=== PATIENT | male | born 1950 | race Caucasian/White ===

== ENCOUNTER 2020-08-07 12:19 | Emergency (ER) | payer MEDICARE, MEDICAID ==
[~2020-08-07] VITALS: Ht 177.8 cm; Wt 49.8 kg
[2020-08-07 12:23] VITALS: BP 120/12
--- NOTE | 2020-08-07 12:36 | NUR ---
Provider RAE Reyna is with the patient at this time.
[2020-08-07] MEDS ORDERED: ipratropium/albuterol 3ml nebule NEB ONE (12:40)
[2020-08-07] MEDS ORDERED: predniSONE 20 mg tablet PO ONE (12:40)
[2020-08-07 13:15] LABS: BASOPHILS # (AUTO) 0.1 X10'3 (0-0.2); BASOPHILS % (AUTO) 0.8 % (0-1); EOSINOPHILS # (AUTO) 0.5 X10'3 (0-0.9); EOSINOPHILS % (AUTO) 4.2 % (0-6); HEMATOCRIT 44.3 % (42.0-52.0); HEMOGLOBIN 14.7 g/dl (14.0-17.9); LYMPHOCYTES # (AUTO) 1.1 X10'3 (1.1-4.8); LYMPHOCYTES % (AUTO) 10.4 % (21-51); MEAN CORPUSCULAR HGB CONC 33.1 g/dL (33.0-36.5); MEAN CORPUSCULAR VOLUME 96.7 FL (78-98); MONOCYTES # (AUTO) 1.6 X10'3 (0-0.9); MONOCYTES % (AUTO) 14.5 % (2-12); NEUTROPHILS # (AUTO) 7.6 X10'3 (1.8-7.7); NEUTROPHILS % (AUTO) 70.1 % (42-75); PLATELET COUNT 314 X10'3 (140-440); RED BLOOD COUNT 4.58 X10'6 (4.70-6.10); RED CELL DISTRIBUTION WIDTH 14.8 % (11.5-14.5); WHITE BLOOD COUNT 10.9 X10'3 (4.5-11.0)
[2020-08-07 13:30] LABS: ALANINE AMINOTRANSFERASE 18 U/L (12-78); ALBUMIN 3.8 G/DL (3.4-5.0); ALKALINE PHOSPHATASE 130 IU/L (46-116); ANION GAP 9 (8-16); ASPARTATE AMINO TRANSFERASE 14 U/L (10-37); BILIRUBIN,TOTAL 0.5 MG/DL (0.1-1.0); BLOOD UREA NITROGEN 9 MG/DL (7-18); BUN/CREATININE RATIO 11.3 (5.4-32.0); CALCIUM 9.8 MG/DL (8.5-10.1); CHLORIDE 103 MMOL/L (99-107); GLUCOSE 105 MG/DL (70-104); POTASSIUM 4.2 MMOL/L (3.5-5.1); SODIUM 140 MMOL/L (135-145); TOTAL CARBON DIOXIDE 28.2 MMOL/L (24-32); TOTAL PROTEIN 7.7 G/DL (6.4-8.2); eGFR > 90 ML/MIN
[2020-08-07] MEDS ORDERED: PRED20TA PO (13:38)
[2020-08-07] MEDS ORDERED: ALBU8HFA PO (13:38)
[2020-08-07] MEDS ORDERED: AZIT-72 PO (13:38)
== END 2020-08-07 14:10 | disposition home or self-care (01) ==
LOC: ER 12:20
DX: J44.1 Chronic obstructive pulmonary disease with (acute) exacerbation (principal); F17.200 Nicotine dependence, unspecified, uncomplicated; Z88.8 Allergy status to other drugs, medicaments and biological substances; Z79.899 Other long term (current) drug therapy
CPT/HCPCS: 36415; 71045; 80053; 83880; 84484; 85025; 93005; 94640; 99285; J7512; 94760

== ENCOUNTER 2021-07-14 19:50 | Emergency (ER) | payer MEDICARE, MEDICAID ==
[~2021-07-14] VITALS: Ht 180.3 cm; Wt 68.2 kg
--- NOTE | 2021-07-15 01:27 | NUR ---
pt placed in room. assumed care of pt
[2021-07-15] MEDS ORDERED: PRED20TA PO (02:15)
[2021-07-15] MEDS ORDERED: DOXY100C43 PO (02:15)
[2021-07-15] MEDS ORDERED: ALBU8HFA PO (02:15)
[2021-07-15 02:34] VITALS: BP 155/88
== END 2021-07-15 02:36 | disposition home or self-care (01) ==
LOC: ER 19:50
DX: J44.1 Chronic obstructive pulmonary disease with (acute) exacerbation (principal); F17.200 Nicotine dependence, unspecified, uncomplicated; Z56.0 Unemployment, unspecified; Z79.2 Long term (current) use of antibiotics; Z79.899 Other long term (current) drug therapy; Z72.89 Other problems related to lifestyle
CPT/HCPCS: 99284

== ENCOUNTER 2022-10-02 11:50 | Emergency (ER) | payer MEDICARE, MEDICAID ==
[~2022-10-02] VITALS: Ht 177.8 cm; Wt 70.0 kg
[2022-10-02 12:20] LABS: EOSINOPHILS # (AUTO) 0.2 X10'3 (0-0.9); HEMOGLOBIN 15.3 g/dl (14.0-17.9); MEAN CORPUSCULAR HGB CONC 33.5 g/dL (33.0-36.5); NEUTROPHILS # (AUTO) 5.3 X10'3 (1.8-7.7); RED BLOOD COUNT 4.79 X10'6 (4.70-6.10); WHITE BLOOD COUNT 7.4 X10'3 (4.5-11.0)
[2022-10-02 12:21] LABS: BASOPHILS % (AUTO) 0.1 % (0-1); EOSINOPHILS % (AUTO) 2.6 % (0-6); HEMATOCRIT 45.8 % (42.0-52.0); LYMPHOCYTES # (AUTO) 0.9 X10'3 (1.1-4.8); LYMPHOCYTES % (AUTO) 11.9 % (21-51); MEAN CORPUSCULAR VOLUME 95.6 FL (78-98); MEAN PLATELET VOLUME 8.8 FL (7.4-10.4); MONOCYTES % (AUTO) 13.9 % (2-12); NEUTROPHILS % (AUTO) 71.5 % (42-75); PLATELET COUNT 374 X10'3 (140-440); RED CELL DISTRIBUTION WIDTH 13.8 % (11.5-14.5)
[2022-10-02 12:35] LABS: ANION GAP 10 (8-16); BLOOD UREA NITROGEN 11 MG/DL (7-18); BUN/CREATININE RATIO 9.4 (5.4-32.0); CALCIUM 9.1 MG/DL (8.5-10.1); CHLORIDE 100 MMOL/L (99-107); CREATININE 1.17 MG/DL (0.60-1.10); GLUCOSE 125 MG/DL (70-104); POTASSIUM 3.6 MMOL/L (3.5-5.1); SODIUM 137 MMOL/L (135-145); TOTAL CARBON DIOXIDE 27.4 MMOL/L (24-32); eGFR 62 ML/MIN
[2022-10-02 12:36] LABS: ALANINE AMINOTRANSFERASE 42 U/L (12-78); ALBUMIN 3.4 G/DL (3.4-5.0); ALBUMIN/GLOBULIN RATIO 0.9 (1.1-1.5); ALKALINE PHOSPHATASE 119 IU/L (46-116); ASPARTATE AMINO TRANSFERASE 25 U/L (10-37); BILIRUBIN,TOTAL 0.9 MG/DL (0.1-1.0)
[2022-10-02 12:44] LABS: MAGNESIUM 2.3 MG/DL (1.5-2.4)
[2022-10-02] MEDS ORDERED: iohexol 350MG/ML 100ml bottle IV ONE (14:31)
[2022-10-02] MEDS ORDERED: carvedilol 6.25mg tablet PO STA (16:18)
[2022-10-02] MEDS ORDERED: aspirin 81mg, enteric-coated 1 TAB TABLET.DR PO ONE (16:20)
[2022-10-02] MEDS ORDERED: CARV-49 PO (16:42)
[2022-10-02] MEDS ORDERED: DOXY100C43 PO (16:43)
[2022-10-02 17:33] VITALS: BP 121/97
[2022-10-02] MEDS ORDERED: ASPI81TA52 PO (17:33)
== END 2022-10-02 17:42 | disposition home or self-care (01) ==
LOC: ER 11:50
DX: I48.91 Unspecified atrial fibrillation (principal); J44.9 Chronic obstructive pulmonary disease, unspecified; J18.9 Pneumonia, unspecified organism; Z56.0 Unemployment, unspecified
CPT/HCPCS: 36415; 71045; 71275; 80053; 83735; 83880; 84484; 85025; 93005; 99285; J3490; Q9967

== ENCOUNTER 2024-06-17 22:46 | Inpatient (IN) | payer MEDICARE, MEDICAID ==
[~2024-06-17] VITALS: Ht 180.3 cm; Wt 73.0 kg
[~2024-06-17 22:46] MED LIST: CARV-49 PO
[2024-06-17] MEDS: normal saline 1000ml 1,000 ML IV ONE (23:22)
[2024-06-17] MEDS: CefTRIAXone/D5W-Rocephin 1gm 50 ML IV ONE (23:23)
[2024-06-17 23:30] LABS: BASOPHILS # (AUTO) 0.1 X10'3 (0-0.2); BASOPHILS % (AUTO) 1.1 % (0-1); EOSINOPHILS # (AUTO) 0.3 X10'3 (0-0.9); EOSINOPHILS % (AUTO) 6.7 % (0-6); HEMATOCRIT 36.9 % (42.0-52.0); HEMOGLOBIN 12.1 g/dl (14.0-17.9); LYMPHOCYTES # (AUTO) 0.7 X10'3 (1.1-4.8); LYMPHOCYTES % (AUTO) 13.9 % (21-51); MEAN CORPUSCULAR HGB CONC 32.9 g/dL (33.0-36.5); MEAN CORPUSCULAR VOLUME 97.2 FL (78-98); MEAN PLATELET VOLUME 9.3 FL (7.4-10.4); MONOCYTES # (AUTO) 0.8 X10'3 (0-0.9); MONOCYTES % (AUTO) 15.2 % (2-12); NEUTROPHILS # (AUTO) 3.2 X10'3 (1.8-7.7); NEUTROPHILS % (AUTO) 63.1 % (42-75); PLATELET COUNT 254 X10'3 (140-440); RED CELL DISTRIBUTION WIDTH 14.8 % (11.5-14.5); WHITE BLOOD COUNT 5.1 X10'3 (4.5-11.0)
[2024-06-17 23:41] LABS: ALANINE AMINOTRANSFERASE 9 U/L (12-78); ALBUMIN 2.8 G/DL (3.4-5.0); ALBUMIN/GLOBULIN RATIO 0.8 (1.1-1.5); ALKALINE PHOSPHATASE 83 IU/L (46-116); ANION GAP 3 (8-16); ASPARTATE AMINO TRANSFERASE 12 U/L (10-37); BILIRUBIN,TOTAL 0.3 MG/DL (0.1-1.0); BLOOD UREA NITROGEN 21 MG/DL (7-18); BUN/CREATININE RATIO 14.6 (10.0-20.0); CALCIUM 8.3 MG/DL (8.5-10.1); CHLORIDE 109 MMOL/L (99-107); CREATININE 1.44 MG/DL (0.60-1.10); GLUCOSE 94 MG/DL (70-104); POTASSIUM 4.5 MMOL/L (3.5-5.1); SODIUM 141 MMOL/L (135-145); TOTAL CARBON DIOXIDE 28.8 MMOL/L (24-32); TOTAL PROTEIN 6.1 G/DL (6.4-8.2); eCRCL 48 ML/MIN; eGFR 48 ML/MIN
[2024-06-17 23:49] LABS: C-REACTIVE PROTEIN 5.92 MG/DL (0.0-0.5); PRO BRAIN NATRIURETIC PEPTIDE 5708 PG/ML (0-125)
[2024-06-18] VITALS (14 sets, daily range): BP systolic 91–103; BP diastolic 65–71; PULSE 67–99; RESP 14–20; TEMP 97.2–98.5; O2SAT 92–98
[2024-06-18] MEDS: azithromycin/NS 500mg/250ml 250 ML IV ONE (00:12)
[2024-06-18 00:26] LABS: TOTAL CELLS COUNTED 100
[2024-06-18 00:27] LABS: NEUTROPHILS % (MANUAL) 63 % (42-75); PLATELET ESTIMATE NORMAL
[2024-06-18] MEDS: normal saline 1000ml 1,000 ML IV ONE (01:44)
[2024-06-18] MEDS ORDERED: iohexol 350MG/ML 100ml bottle IV ONE (04:04)
[2024-06-18] MEDS ORDERED: CARV-50 PO (04:47)
[2024-06-18] MEDS ORDERED: ALBU1.253 NEB (04:47)
[2024-06-18] MEDS ORDERED: FLUT12AE4 (04:47)
[2024-06-18] MEDS ORDERED: APIX5TAB3 PO (04:47)
[2024-06-18] MEDS ORDERED: SPIR25TA5 PO (04:47)
[2024-06-18] MEDS ORDERED: SACU1TAB7 PO (04:47)
[2024-06-18 05:09] LABS: BILIRUBIN,URINE NEGATIVE (Neg); CLARITY,URINE CLEAR (Clear); COLOR,URINE YELLOW (Yellow); GLUCOSE, URINE >=1000 mg/dl (Neg); KETONES,URINE NEGATIVE (Neg); LEUKOCYTE ESTERASE ,URINE NEGATIVE (Neg); NITRITES, URINE NEGATIVE (Neg); OCCULT BLOOD,URINE TRACE-INTACT (Neg); PH,URINE 5.5 (4.8-8.0); PROTEIN,URINE NEGATIVE (Neg); UROBILINOGEN,URINE 0.2 E.U/dL (0.2-1.0)
[2024-06-18 05:12] LABS: UA COLLECTION TYPE NON-SPECIFIED
[2024-06-18 05:16] LABS: SQUAMOUS EPITHELIAL CELL,UR FEW /LPF (FEW)
[2024-06-18 05:17] LABS: BACTERIA,URINE FEW /HPF (Neg); RBC,URINE 0-2 /HPF (0-2); TRANSITIONAL EPI CELLS,URINE FEW /HPF; WBC,URINE 0-4 /HPF (0-4)
[2024-06-18] MEDS ORDERED: magnesium hydroxide 30ml (MOM) UD suspension PO PRN (05:55)
[2024-06-18] MEDS ORDERED: potassium Cl 40MEQ/1/2NS 520ml 520 ML IV PRN (05:55)
[2024-06-18] MEDS ORDERED: magnesium sulf-water 2g/50mL 50 ML IV PRN (05:55)
[2024-06-18] MEDS ORDERED: acetaminophen 325mg tablet PO PRN (05:55)
[2024-06-18] MEDS ORDERED: mag hydrox/Alum hydrox/simeth 30ml oral suspension PO PRN (05:55)
[2024-06-18] MEDS ORDERED: magnesium sulf-water 4G/100mL 100 ML IV PRN (05:55)
[2024-06-18] MEDS ORDERED: potassium Cl 20 mEq SR tablet PO PRN ×2 (05:55)
[2024-06-18] MEDS ORDERED: magnesium Cl slow-release 64mg tablet PO PRN (05:55)
[2024-06-18] MEDS ORDERED: ondansetron/PF 4mg/2ml inj IV PRN (05:55)
[2024-06-18] MEDS ORDERED: ipratropium/albuterol 3ml nebule NEB PRN (06:35)
[2024-06-18] MEDS: furosemide 40mg/4ml inj IV ONE (07:13)
[2024-06-18] MEDS ORDERED: furosemide 20MG tablet PO ONE (08:00)
[2024-06-18] MEDS: lactose-reduced food (Ensure Enlive) - 237ml bottle PO SCH (08:04)
[2024-06-18] MEDS: K and/or MAG REPLACEMENT MC SCH (08:04)
[2024-06-18] MEDS: ipratropium/albuterol 3ml nebule NEB SCH (08:21)
[2024-06-18] MEDS: carVEDilol 12.5mg tablet PO SCH (09:18)
[2024-06-18] MEDS: docusate sod 100mg capsule PO SCH (09:18)
[2024-06-18] MEDS: apixaban 5mg tablet PO SCH (09:19)
[2024-06-18] MEDS: sacubitril/valsartan 49mg-51mg tablet PO SCH (09:21)
[2024-06-18] MEDS: spironolactone 25 MG tablet PO SCH (09:22)
[2024-06-18 09:51] LABS: MAGNESIUM 1.6 MG/DL (1.5-2.4); POTASSIUM 4.1 MMOL/L (3.5-5.1)
[2024-06-19] VITALS (7 sets, daily range): BP systolic 95–103; BP diastolic 74–75; PULSE 64–81; RESP 15–18; TEMP 98.1; O2SAT 91–97
[2024-06-19 07:11] LABS: ALANINE AMINOTRANSFERASE 7 U/L (12-78); ALBUMIN 2.4 G/DL (3.4-5.0); ALBUMIN/GLOBULIN RATIO 0.7 (1.1-1.5); ALKALINE PHOSPHATASE 73 IU/L (46-116); ANION GAP 10 (8-16); ASPARTATE AMINO TRANSFERASE 12 U/L (10-37); BILIRUBIN,TOTAL 0.4 MG/DL (0.1-1.0); BLOOD UREA NITROGEN 18 MG/DL (7-18); BUN/CREATININE RATIO 16.4 (10.0-20.0); CALCIUM 8.1 MG/DL (8.5-10.1); CHLORIDE 108 MMOL/L (99-107); GLUCOSE 84 MG/DL (70-104); MAGNESIUM 1.8 MG/DL (1.5-2.4); POTASSIUM 3.5 MMOL/L (3.5-5.1); SODIUM 140 MMOL/L (135-145); TOTAL PROTEIN 5.7 G/DL (6.4-8.2); eCRCL 63 ML/MIN; eGFR 66 ML/MIN
[2024-06-19] MEDS: carvedilol 6.25mg tablet PO SCH (07:58)
[2024-06-19 09:59] LABS: BASOPHILS # (AUTO) 0.1 X10'3 (0-0.2); BASOPHILS % (AUTO) 1.4 % (0-1); EOSINOPHILS # (AUTO) 0.2 X10'3 (0-0.9); EOSINOPHILS % (AUTO) 3.6 % (0-6); HEMOGLOBIN 12.4 g/dl (14.0-17.9); LYMPHOCYTES # (AUTO) 0.8 X10'3 (1.1-4.8); LYMPHOCYTES % (AUTO) 13.7 % (21-51); MEAN CORPUSCULAR HEMOGLOBIN 31.6 PG (27.0-31.0); MEAN CORPUSCULAR HGB CONC 32.7 g/dL (33.0-36.5); MEAN CORPUSCULAR VOLUME 96.6 FL (78-98); MEAN PLATELET VOLUME 9.6 FL (7.4-10.4); MONOCYTES # (AUTO) 0.7 X10'3 (0-0.9); MONOCYTES % (AUTO) 11.9 % (2-12); NEUTROPHILS % (AUTO) 69.4 % (42-75); PLATELET COUNT 241 X10'3 (140-440); RED BLOOD COUNT 3.93 X10'6 (4.70-6.10); RED CELL DISTRIBUTION WIDTH 14.4 % (11.5-14.5); WHITE BLOOD COUNT 5.7 X10'3 (4.5-11.0)
[2024-06-19] MEDS ORDERED: GADOTERATE MEGLUMINE 7.5 MMOL/15 ML VIAL IV ONE (13:20)
[2024-06-19] MEDS ORDERED: NICO-731 TOP (15:44)
[2024-06-19] MEDS ORDERED: FURO20TA4 PO (15:46)
[2024-06-19 15:49] LABS: HEMOGLOBIN A1C 5.2 % (4.5-6.2)
== END 2024-06-19 17:55 | disposition home or self-care (01) | DRG 682 ==
LOC: ER 22:46 → ED HOLD 06-18 04:47 → ORTHO 4S 06-18 09:33
PROVIDERS: ADMIT Surgery Surgical Critical Care; ATTEND Internal Medicine
PROC: B32T1ZZ Computerized Tomography (CT Scan) of Left Pulmonary Artery using Low Osmolar Contrast (ICD-10-PCS; principal; 2024-06-18)
PROC: B3201ZZ Computerized Tomography (CT Scan) of Thoracic Aorta using Low Osmolar Contrast (ICD-10-PCS; 2024-06-18)
PROC: B32S1ZZ Computerized Tomography (CT Scan) of Right Pulmonary Artery using Low Osmolar Contrast (ICD-10-PCS; 2024-06-18)
DX: N17.9 Acute kidney failure, unspecified (principal); I50.23 Acute on chronic systolic (congestive) heart failure; I13.0 Hypertensive heart and chronic kidney disease with heart failure and stage 1 through stage 4 chronic kidney disease, or unspecified chronic kidney disease; J44.1 Chronic obstructive pulmonary disease with (acute) exacerbation; J43.9 Emphysema, unspecified; N18.9 Chronic kidney disease, unspecified; I48.0 Paroxysmal atrial fibrillation; F17.210 Nicotine dependence, cigarettes, uncomplicated; E88.09 Other disorders of plasma-protein metabolism, not elsewhere classified; Z79.01 Long term (current) use of anticoagulants
CPT/HCPCS: 36415; 70450; 70553; 71045; 71275; 80053; 81001; 83036; 83605; 83735; 83880; 84132; 84145; 84484; 85007; 85025; 86140; 87040; 87081; 93005; 93306; 94640; 94760; 96361; 96365; 96375; 99285; A9575; G0378; J0456; J0696; J1940; J7030; Q9967